=== PATIENT | male | born 1990 | race African-American/Black ===

== ENCOUNTER 2019-02-05 10:06 | Emergency (ER) | payer OTHER ==
[2019-02-05 10:29] VITALS: RESP 18
[2019-02-05] MEDS ORDERED: DEXAMETHASONE SOD PHOSPHATE 10 MG/ML 1 ML VIAL IV STA (11:12)
[2019-02-05] MEDS ORDERED: SODIUM CHLORIDE 0.9% 1,000 ML IV ONE (11:12)
[2019-02-05] MEDS ORDERED: AMPICILLIN-SULBACTAM 3 GM in SODIUM CHLORIDE 0.9% 100 ML IVPB STA (11:13)
--- NOTE | 2019-02-05 11:32 | ED ---
General Adult HPI - General Chief complaint: ENT Stated complaint: sorethroat Time Seen by Provider: 02/05/19 11:01 Source: patient, RN notes reviewed, old records reviewed Mode of arrival: ambulatory Limitations: no limitations - History of Present Illness Initial comments: 28-year-old male presents with complaint of left lower toothache and sore throa t. Patient's symptoms have progressed over the course of 5 days. He's been unable to swallow and as noted a change in his voice. He reports left-sided sore throat. He's had subjective fever and chills. He has previous history of poor dentition. No chronic medical conditions, no diabetes. No vomiting or diarrhea but he has been unable to tolerate anything orally for several days. - Related Data Allergies Allergy/AdvReac Type Severity Reaction Status Date / Time No Known Allergies Allergy Verified 02/05/19 10:29 Review of Systems ROS Statement: Those systems with pertinent positive or pertinent negative responses have been documented in the HPI. ROS Other: All systems not noted in ROS Statement are negative. Past Medical History Past Medical History: No Reported History History of Any Multi-Drug Resistant Organisms: None Reported Past Surgical History: No Surgical Hx Reported Past Psychological History: Depression Smoking Status: Former smoker Past Alcohol Use History: None Reported Past Drug Use History: None Reported General Exam Limitations: no limitations General appearance: alert, in no apparent distress Head exam: Present: atraumatic, normocephalic Eye exam: Present: normal appearance, PERRL ENT exam: Present: other (Left peritonsillar swelling, cellulitis, shifting past the midline with uvular deviation.) Cardiovascular Exam: Present: regular rate, normal rhythm GI/Abdominal exam: Present: soft. Absent: distended, tenderness Extremities exam: Present: normal inspection, normal capillary refill. Absent: pedal edema Neurological exam: Present: alert, oriented X3, CN II-XII intact. Absent: motor sensory deficit Psychiatric exam: Present: normal affect, normal mood Skin exam: Present: warm, dry, intact. Absent: cyanosis, diaphoretic Course Vital Signs 02/05/19 10:26 Temperature 98.8 F Pulse Rate 75 Respiratory 18 Rate Blood Pressure 126/89 O2 Sat by Pulse 99 Oximetry Procedures - Incision & Drainage Consent Obtained: verbal consent Indication: Left peritonsillar abscess Site: oral Anesthetic Used: lidocaine 1%, with epi Amount (mLs): 3 Sterile Field Used?: No Needle Aspiration Performed?: Yes I&D Drainage Obtained: Pus, Blood Patient Tolerated Procedure: well Medical Decision Making - Medical Decision Making 28-year-old male presenting with sore throat difficulty swallowing and muffled voice. On exam he has large asymmetric swelling of the peritonsillar region on the left with lymphadenopathy. Has very mild trismus and muffled voice. He is handling his secretions. No stridor or respiratory distress. He is initiated on Decadron and Unasyn. CT is performed which shows large phlegmon and abscess formation from the nasopharynx to the supraglottic region on the left. I did perform aspiration with an 18-gauge Spinal needle capped, with drainage of blood and small amount of pus. Patient tolerated procedure well. Patient is unable to eat and will require IV antibiotics for this large phlegmon and abscess. He will require ENT evaluation. This institution does not currently have ENT nonprofit manager. He will be transferred to [facility] for IV antibiotics, observation and ENT consultation. Case discussed with the ER physician Dr. Khan. - Lab Data Result diagrams: 02/05/19 11:30 02/05/19 11:30 Lab Results 02/05/19 02/05/19 02/05/19 Range/Units 11:30 11:30 11:30 WBC 8.5 (3.8-10.6) k/uL RBC 5.18 (4.30-5.90) m/uL Hgb 14.8 (13.0-17.5) gm/dL Hct 43.5 (39.0-53.0) % MCV 83.8 (80.0-100.0) fL MCH 28.5 (25.0-35.0) pg MCHC 34.0 (31.0-37.0) g/dL RDW 12.2 (11.5-15.5) % Plt Count 365 (150-450) k/uL Neutrophils % 76 % Lymphocytes % 17 % Monocytes % 5 % Eosinophils % 1 % Basophils % 0 % Neutrophils # 6.4 (1.3-7.7) k/uL Lymphocytes # 1.4 (1.0-4.8) k/uL Monocytes # 0.4 (0-1.0) k/uL Eosinophils # 0.1 (0-0.7) k/uL Basophils # 0.0 (0-0.2) k/uL Manual Slide Review Performed Sodium 143 (137-145) mmol/L Potassium 4.2 (3.5-5.1) mmol/L Chloride 103 (98-107) mmol/L Carbon Dioxide 28 (22-30) mmol/L Anion Gap 12 mmol/L BUN 15 (9-20) mg/dL Creatinine 1.15 (0.66-1.25) mg/dL Est GFR (CKD-EPI)AfAm >90 (>60 ml/min/1.73 sqM) Est GFR (CKD-EPI)NonAf 87 (>60 ml/min/1.73 sqM) Glucose 113 H (74-99) mg/dL Plasma Lactic Acid Eliseo 1.2 (0.7-2.0) mmol/L Calcium 10.4 H (8.4-10.2) mg/dL Total Bilirubin 0.9 (0.2-1.3) mg/dL AST 18 (17-59) U/L ALT 11 (4-49) U/L Alkaline Phosphatase 93 (38-126) U/L Total Protein 8.0 (6.3-8.2) g/dL Albumin 4.3 (3.5-5.0) g/dL Disposition Clinical Impression: Peritonsillar abscess Disposition: OTHER INSTITUTION NOT DEFINED Condition: Stable Is patient prescribed a controlled substance at d/c from ED?: No Referrals: Itz Patiño DO [Primary Care Provider] - 1-2 days Time of Disposition: 13:02 - Out of Hospital Transfer - Req. Specs Out of Hospital Transfer - Requested Specifics: Other Emergency Center (Transferred to [facility])
[2019-02-05 12:02] LABS: ALT 11 U/L (4-49); AST 18 U/L (17-59); African American GFR (CKD) >90 (>60 ml/min/1.73 sqM); Albumin 4.3 g/dL (3.5-5.0); Alkaline Phosphatase 93 U/L (38-126); Anion Gap 12 mmol/L; Basophils % (A) 0 %; Blood Urea Nitrogen 15 mg/dL (9-20); Calcium 10.4 mg/dL (8.4-10.2); Carbon Dioxide 28 mmol/L (22-30); Chloride 103 mmol/L (98-107); Eosinophils # (A) 0.1 k/uL (0-0.7); Eosinophils % (A) 1 %; Glucose 113 mg/dL (74-99); HCT 43.5 % (39.0-53.0); HGB 14.8 gm/dL (13.0-17.5); Lymphocytes # (A) 1.4 k/uL (1.0-4.8); Lymphocytes % (A) 17 %; MCH 28.5 pg (25.0-35.0); MCV 83.8 fL (80.0-100.0); Mean Platelet Volume 7.1; Monocytes # (A) 0.4 k/uL (0-1.0); Monocytes % (A) 5 %; Neutrophils # (A) 6.4 k/uL (1.3-7.7); Neutrophils % (A) 76 %; Non-African American GFR(CKD) 87 (>60 ml/min/1.73 sqM); Platelet Count 365 k/uL (150-450); Potassium 4.2 mmol/L (3.5-5.1); RBC 5.18 m/uL (4.30-5.90); RDW 12.2 % (11.5-15.5); Sodium 143 mmol/L (137-145); Total Bilirubin 0.9 mg/dL (0.2-1.3); WBC 8.5 k/uL (3.8-10.6)
--- NOTE | 2019-02-05 12:11 | CT ---
EXAMINATION TYPE: CT soft tissue neck w con DATE OF EXAM: 02/05/2019 12:03 PM COMPARISON: None HISTORY: Sore throat, peritonsillar abscess? CT DLP: 295 mGycm Automated exposure control for dose reduction was used. CONTRAST: CT scan of the neck is performed following with IV Contrast, patient injected with 100 mL of Isovue 3 00. Axial images are obtained, coronal and sagittal reformatted images are reviewed. FINDINGS: Lung apices are clear. Thyroid enhances normally. Visualized vasculature enhances normally. Intraorbital and intracranial structures have a normal appearance. There is marked asymmetry of the nasopharynx on the left. Low-attenuation in the reason measuring 6 m m is noted could represent. Small phlegmon developing abscess. There is deviation of the airway from left to right with abnormal soft tissue thickening measuring up to 2.5 cm. There is an area of low at tenuation. Tonsillar region measuring 2.4 cm which could be associated with a peritonsillar phlegmon or abscess. This does result in deviation of the airway at the level the oropharynx soft tissue nodul e seen in the submandibular region measure 1.1 cm in short axis compatible with adenopathy. Submandib ular glands and parotid glands have a symmetric appearance. IMPRESSION: 1. Large area of abnormal soft tissue attenuation extending from the nasopharynx, oropharynx and supr aglottic pharynx on the left with deviation of the airway from left to right. At the level of the isabelle pharynx and left peritonsillar region there is a 2.5 cm area of low attenuation which may represent a peritonsillar abscess. Correlate clinically.
[2019-02-05] MEDS ORDERED: LIDOCAINE 1%-EPI 1:100,000 20 ML VIAL SQ STA (12:39)
[2019-02-05] MEDS ORDERED: BENZOCAINE SPRAY 1 CAN TOPICAL STA (12:39)
[2019-02-05 14:30] VITALS: BP 125/72; PULSE 79; TEMP 98.2
== END 2019-02-05 14:48 | disposition other institution (70) ==
LOC: EC 10:06
DX: J36 Peritonsillar abscess (principal); Z87.891 Personal history of nicotine dependence
CPT/HCPCS: 99285; 42700; 96365; 96375; 96361 ×3; 36415; 80053; 83605; 85025; 87040; 70491; J1100; J0295; Q9967